=== PATIENT | female | born 1960 | race African-American/Black ===

== ENCOUNTER 2019-09-28 01:29 | Day surgery (SDC) | payer OTHER, SELFPAY ==
[2019-09-28] VITALS (13 sets, daily range): BP systolic 128–160; BP diastolic 63–84; PULSE 64–84; RESP 16–22; TEMP 36.3–36.4; O2SAT 91–99; BMI 33.7
--- NOTE | 2019-09-28 16:08 | P.SEDATION_ITS ---
Patient Data Allergies Allergy/AdvReac Type Severity Reaction Status Date / Time No Known Allergies Allergy Verified 09/27/19 16:00 Home Medications Medication Instructions Recorded Confirmed Type amlodipine 10 mg PO DAILY 09/27/19 09/27/19 History losartan-hydrochlorothiazide 1 tablet PO DAILY 09/27/19 09/27/19 History magnesium oxide 400 mg PO EVERY OTHER DAY 09/27/19 09/27/19 History metformin 500 mg PO BID 09/27/19 09/27/19 History omeprazole 40 mg PO DAILY 09/27/19 09/27/19 History ranitidine HCl 150 mg PO DAILY 09/27/19 09/27/19 History rosuvastatin [Crestor] 5 mg PO DAILY 09/27/19 09/27/19 History Current Medications: Active Medications Sodium Chloride (Normal Saline Iv) 500 mls @ 100 mls/hr IV CONT .Q5H [facility] Sedation/Anesthesia: No previous sedation/anesthesia problems (including family history). PMFSH Social History Social History Gender identity (if verbalized by the patient): Female Physical Exam Pre Procedural Exam: Normal: Appearance, Eyes, Ears, Nose, Neck, Throat, Airway, Lungs, Heart Size, Heart Rate, Heart Rhythm, Neuro Exam, Abdomen, Liver, Kidneys, Spleen, Breasts, Genitalia, Extremities and Skin Hours since solid foods: 8 Hours since liquid intake: 8 Internal Medicine - PN: Obj Da Vital Signs Vital Signs: Vital Signs - 24 hr 09/28/19 12:46 Temperature 36.3 C L Pulse Rate 84 Respiratory Rate 18 Blood Pressure 157/84 H Pulse Oximetry 99 Meds/Results Medications: Active Medications Generic Name Dose Route Start Last Admin Trade Name Heshamq PRN Reason Stop Dose Admin Sodium Chloride 500 mls @ 100 mls/hr 09/28/19 06:00 Normal Saline Iv IV CONT .Q5H [facility] ASA Classification/Sedation Risks: Risks, benefits and alternatives explained and patient/family accepted plan for sedation. Patient re-evaluated immediately prior to sedation.
--- NOTE | 2019-09-28 16:08 | WPDHPUPDATE1 ---
History and Physical Update Update Date/Time: 09/28/19 16:08 History and Physical has been reviewed, including an updated exam of the patient. There are NO changes in the patient's condition. Risks, benefits, and alternatives have been discussed and questions answered. Patient agrees to proceed with procedure.
--- NOTE | 2019-09-28 16:15 | P.SEDATION_ITS ---
Patient Data Allergies Allergy/AdvReac Type Severity Reaction Status Date / Time No Known Allergies Allergy Verified 09/27/19 16:00 Home Medications Medication Instructions Recorded Confirmed Type amlodipine 10 mg PO DAILY 09/27/19 09/27/19 History losartan-hydrochlorothiazide 1 tablet PO DAILY 09/27/19 09/27/19 History magnesium oxide 400 mg PO EVERY OTHER DAY 09/27/19 09/27/19 History metformin 500 mg PO BID 09/27/19 09/27/19 History omeprazole 40 mg PO DAILY 09/27/19 09/27/19 History ranitidine HCl 150 mg PO DAILY 09/27/19 09/27/19 History rosuvastatin [Crestor] 5 mg PO DAILY 09/27/19 09/27/19 History Current Medications: Active Medications Sodium Chloride (Normal Saline Iv) 500 mls @ 100 mls/hr IV CONT .Q5H [facility] Sedation/Anesthesia: No previous sedation/anesthesia problems (including family history). PMFSH Social History Social History Gender identity (if verbalized by the patient): Female Physical Exam Pre Procedural Exam: Normal: Appearance, Eyes, Ears, Nose, Neck, Throat, Airway, Lungs, Heart Size, Heart Rate, Heart Rhythm, Neuro Exam, Abdomen, Liver, Kidneys, Spleen, Breasts, Genitalia, Extremities and Skin Hours since solid foods: 8 Hours since liquid intake: 8 Internal Medicine - PN: Obj Da Vital Signs Vital Signs: Vital Signs - 24 hr 09/28/19 12:46 Temperature 36.3 C L Pulse Rate 84 Respiratory Rate 18 Blood Pressure 157/84 H Pulse Oximetry 99 Meds/Results Medications: Active Medications Generic Name Dose Route Start Last Admin Trade Name Heshamq PRN Reason Stop Dose Admin Sodium Chloride 500 mls @ 100 mls/hr 09/28/19 06:00 Normal Saline Iv IV CONT .Q5H [facility] ASA Classification/Sedation Risks: Risks, benefits and alternatives explained and patient/family accepted plan for sedation. Patient re-evaluated immediately prior to sedation.
--- NOTE | 2019-09-28 17:52 | SUR.PHASEI ---
1648: RETURNS TO [facility] 6 S/P PERIPHERAL ANGIOGRAM/AIF W/ DR. OWENS. AWAKE AND ALERT ON ARRIVAL. DENIES CP OR SOB. 5FR SHEATH IN PLACE RFA. SITE SOFT, NONTENDER. NO BLEEDING, HEMATOMA, OR SWELLING TO SITE NOTED. GUAZE DRESSING D/I. R. AND L. PEDAL PULSES STRONG, SENSATION AND MOVMENT WNL. IV SITE L. AC WNL, IVF'S INFUSING ORDERED. MONITOR SR. VSS. REVIEWED BEDREST ACTIVITY RESTRICTIONS W/ PT, FAMILY. VOICED UNDERSTANDING. WILL CONTINUE TO MONITOR. 1707: MANUAL 5FR SHEATH PULL FROM R.FA PER PROTOCOL BY JAMES KATE RN AT THIS TIME. FIRM STEADY PRESSURE HELD TO SITE. WILL HOLD UNTIL HEMOSTASIS TO SITE. 1738: HEMOSTASIS ACHIEVED AFTER 30 MINUTES FIRM STEADY MANUAL PRESSURE HELD TO R. FA PUNCTURE SITE BY JAMES KATE RN. TOLERATED WELL. VSS. SITE SOFT, NONTENDER. NO BLEEDING OR HEMATOMA NOTED TO SITE. SITE DRESSED W/ STAT SEAL AND TEGADERM. REVIEWED BEDREST ACTIVITY RESTRICTIONS W/ PT AND REMINDED TO KEEP HEAD ON PILLOW AND R. LEG STRAIGHT. BEDREST X 3 HOURS AND IVF'S TO RUN ORDERED. WILL CONTINUE TO MONITOR.
--- NOTE | 2019-09-28 18:56 | SUR.PHASEII ---
1749: BEGIN PHASE II RECOVERY. HEMOSTASIS ACHIEVED AT 1738 TO PUNCTURE RFA AFTER 30 MINUTES MANUAL PRESSURE HOLD TO SITE BY JAMES KATE RN. SITE W/ C/D/I STAT SEAL AND TEGADERM DRESSING; SITE SOFT, NONTENDER, NO S/S BLEEDING OR HEMATOMA. R AND L. PEDAL PULSES STRONG. BEDREST ACTIVITY RESTRICTIONS REVIEWED W/ PT. VSS. BR X 3 HOURS UNTIL 2037. IVF'S RUNNING ORDERED. WILL CONTINUE TO MONITOR. 1837: HOB UP 30 DEGREES FOR SUPPER MEAL. KIAH. WELL. NO NEW CHANGES.
--- NOTE | 2019-09-28 22:31 | SUR.PHASEII ---
2110:UP TO BEDSIDE RECLINER. RT GROIN SITE IS CLEAN AND DRY. NO HEMATOMA OR BLEEDING NOTED. PATIENT IS INSTRUCTED ON WHAT SIGNS AND SYMPTOMS TO MONITOR FOR AND WHEN TO CALL THE NURSE. CALL [facility] WITHIN REACH.
--- NOTE | 2019-09-28 22:33 | SUR.PHASEII ---
2200:DETAILED DISCHARGE INSTRUCTIONS GIVEN TO PATIENT. PATIENT VERBALIZED AN UNDERSTANDING OF THESE INSTRUCTIONS.
--- NOTE | 2019-09-28 22:34 | SUR.PHASEII ---
2203:IV REMOVED FROM LT FOREARM, SHEATH INTACT. NO HEMATOMA OR BLEEDING NOTED, DRESSING APPLIED.
--- NOTE | 2019-09-28 22:36 | SUR.PHASEII ---
2208:PATIENT DRESSED SELF WITHOUT ASSISTANCE. RT GROIN SITE IS CLEAN AND DRY. NO HEMATOMA OR BLEEDING NOTED.
--- NOTE | 2019-09-28 22:37 | SUR.PHASEII ---
2215:PATIENT DISCHARGED TO HOME VIA WHEELCHAIR. RT GROIN SITE IS CLEAN AND DRY. NO HEMATOMA OR BLEEDING NOTED.
--- NOTE | 2019-09-28 22:39 | SUR.PHASEII ---
2215:RT PETAL PULSE STRONG, CHECKED PERIPHERAL, REGULAR.
--- NOTE | 2019-09-29 06:19 | OP_ITS ---
DATE OF PROCEDURE: 09/28/2019 PROCEDURES: 1. Abdominal aorta angiogram with distal runoff. 2. Selective left SFA angiogram with distal runoff using contralateral access. 3. Selective right common femoral artery angiogram with distal runoff using an ipsilateral access. 4. Conscious sedation using a total of 2 mg Versed, 50 mcg fentanyl. Starting time is 1530, ending time is 1610. COMPLICATION: None. BLOOD LOSS: None. SEDATION: Conscious sedation using 2 mg Versed and 50 mcg fentanyl. HISTORY: The patient is a 58-year-old lady, history of diabetes mellitus, hypertension, was seen because of leg claudication, underwent a vascular ultrasound revealed significant disease in both SFA on both sides. She was brought to the label tacker for possible evaluation and treatment. TECHNIQUE: After informed consent was obtained from the patient, was brought to the label tacker, placed on a label tacker table, prepped and draped in usual sterile fashion. A 5-[place] sheath was inserted in the right common femoral artery using micropuncture technique. Through the sheath, a 5-[place] Omni Flush catheter was inserted, advanced to the abdominal aorta, abdominal aorta angiogram with distal runoff was obtained. Catheter was then advanced to the left iliac, advanced over the guidewire over to the left SFA and left SFA angiogram with distal runoff was obtained. Catheter was then pulled. The sheath was used for angiogram to the right common femoral and right common femoral artery angiogram with distal runoff was obtained. The catheter then was pulled. The sheath was pulled applying pressure for hemostasis. The patient tolerated the procedure with no complication, taken from the label tacker to her room in stable condition and stable vital signs. ANGIOGRAPHIC FINDINGS: Abdominal aorta showed patent renal arteries. No significant disease or stenosis. Right iliac with minimal disease. Right common iliac with minimal disease. Right external iliac, minimal disease. Right common femoral with minimal disease. Right SFA showed diffuse calcification, but no obstructive lesions noted. Next, profunda with diffuse calcification, but no obstructive lesion noted. Popliteal patent with no significant disease or stenosis. Next, anterior tibial, posterior tibial, both are patent with minimal diffuse disease distally. The peroneal is patent. On the left side, left common iliac patent, no significant disease or stenosis. Left external iliac patent with minimal calcification. Left common femoral with minimal disease with minimal calcification. Next, SFA on the left showed significant calcification with diffuse disease, but no obstructive lesion. The profunda is patent with significant calcification, but no obstructive lesion. Left popliteal is patent, minimal calcification. There is a three-vessel distal runoff with sluggish distal flow with diffuse distal disease. SUMMARY: 1. Distal disease. 2. [id number] SFA disease, but significant calcification. RECOMMENDATION: Medical treatment, risk factor modification. D I MT: Shital
== END 2019-09-28 21:28 | disposition home or self-care (01) ==
PROVIDERS: Visit Provider Specialist
PROC: (CPT 75630; 2019-09-28 14:30)
DX: I70.213 Atherosclerosis of native arteries of extremities with intermittent claudication, bilateral legs (principal); R60.9 Edema, unspecified; R07.9 Chest pain, unspecified; I10 Essential (primary) hypertension; E11.9 Type 2 diabetes mellitus without complications; E78.2 Mixed hyperlipidemia; K21.9 Gastro-esophageal reflux disease without esophagitis; Z87.891 Personal history of nicotine dependence; Z79.84 Long term (current) use of oral hypoglycemic drugs
CPT/HCPCS: 36140; 75630; C1887; C1894; J1644; J2250; J3010; J7040